=== PATIENT | female | born 1960 | race Caucasian/White ===

== ENCOUNTER 2024-12-09 09:39 | Outpatient (CLI) | payer MEDICAID ==
--- NOTE | 2024-12-09 10:48 | RADIOLOGY REPORT ---
PROCEDURE: MR MRI HEAD INDICATION: CHRONIC TENSION-TYPE HEADACHE EXAM DATE: 12/09/2024 09:45 AM COMPARISON: None TECHNIQUE: MRI of the brain without intravenous contrast. FINDINGS: Diffusion weighted images of the brain demonstrate no evidence of acute infarction. There is no evidence of acute intracranial hemorrhage, extra-axial collection, mass effect, midline s hift, herniation or hydrocephalus. Mild cerebral atrophy. The signal intensities of the brain parenchyma are within normal limits. There are no signal abnormalities on the susceptibility weighted sequences. The major vascular flow voids are present. The visualized paranasal sinuses and mastoid air cells are clear. The surrounding soft tissues and o sseous structures are unremarkable. IMPRESSION: 1. No evidence of acute infarction, intracranial hemorrhage, mass effect or hydrocephalus. Mild cereb ral atrophy. HS:Y
== END 2024-12-09 23:59 | disposition home or self-care (01) ==
LOC: MRI02 09:39
PROVIDERS: ATTEND Family Medicine
DX: G44.229 Chronic tension-type headache, not intractable (principal)
CPT/HCPCS: 70551